=== PATIENT | female | born 1985 | race Two or more races ===

== ENCOUNTER 2016-06-11 18:02 | Emergency (ER) | payer MEDICAID ==
[~2016-06-11] VITALS: Ht 157.5 cm; Wt 64.4 kg
[~2016-06-11 18:02] MED LIST: PREN-96 PO; PRENMIS19
[2016-06-11 23:31] LABS: Urine RBC None Seen /hpf (0 - 4)
[2016-06-11 23:46] LABS: Urine Bilirubin Negative (Negative); Urine Blood Negative /uL (Negative); Urine Color Yellow (Yellow); Urine Glucose Normal (Normal); Urine Ketone Negative (Negative); Urine Mucus FEW (None Seen); Urine Nitrite Negative (Negative); Urine Squamous Epithelial Cell FEW /hpf (<5); Urine Urobilinogen Normal (Negative); Urine pH 6.5 (5.0-8.0)
[2016-06-12] MEDS ORDERED: ACETAMINOPHEN 325 MG TAB PO ONE ×2 (00:34→00:45)
[2016-06-12 03:39] VITALS: BP 123/73
== END 2016-06-12 04:14 | disposition home or self-care (01) ==
LOC: ER 18:03
DX: O26.891 Other specified pregnancy related conditions, first trimester (principal); G43.909 Migraine, unspecified, not intractable, without status migrainosus; Z3A.14 14 weeks gestation of pregnancy
CPT/HCPCS: 76801; 81001; 81025

== ENCOUNTER 2016-09-05 02:34 | Observation (INO) | payer MEDICAID ==
[2016-09-05] MEDS ORDERED: LACTATED RINGER'S 1,000 ML IV ONE (02:41)
[2016-09-05] MEDS ORDERED: ONDANSETRON HCL 4 MG/2 ML VIAL IV PRN (02:45)
[2016-09-05] MEDS ORDERED: TERBUTALINE SULFATE 1 MG/ML 1ML VIAL SC SCH (02:45)
== END 2016-09-05 03:56 | disposition home or self-care (01) | DRG 566 ==
LOC: LDRP 02:34
PROVIDERS: ADMIT Obstetrics & Gynecology; ATTEND Obstetrics & Gynecology
DX: O21.2 Late vomiting of pregnancy (principal); O26.892 Other specified pregnancy related conditions, second trimester; R10.9 Unspecified abdominal pain; Z3A.26 26 weeks gestation of pregnancy
CPT/HCPCS: 59025; 81002; 96374; G0378; J2405; 96366; 96375

== ENCOUNTER → 2016-09-05 | Emergency (ER) | payer MEDICAID | END | disposition left against medical advice (07) | LOC: ER 02:21 | DX: R10.9 Unspecified abdominal pain (principal); Z53.21 Procedure and treatment not carried out due to patient leaving prior to being seen by health care provider ==

== ENCOUNTER → 2016-09-18 | Outpatient (CLI) | payer MEDICAID ==
[2016-09-18 12:29] LABS: Basophils # (auto) 0 uL; Basophils % (auto) 0.3 % (0.0-2.0); Eosinophils # (auto) 0.3 uL; Eosinophils % (auto) 4.5 % (0.0-7.0); Hematocrit 35.6 % (36.0-46.0); Hemoglobin 11.9 g/dL (12.2-16.2); Lymphocytes # (auto) 1.3 uL; Lymphocytes % (auto) 17.5 % (10.0-50.0); Mean Corpuscular Hemoglobin 28.5 pg (28.0-32.0); Mean Corpuscular Hgb Conc. 33.3 g/dL (32.0-36.0); Mean Corpuscular Volume 85.7 fL (80.0-100.0); Monocytes # (auto) 0.5 uL; Monocytes % (auto) 6.6 % (0.0-12.0); Neutrophils # (auto) 5.1 uL; Neutrophils % (auto) 71.1 % (37.0-80.0); Platelet Count (auto) 261 10^3/uL (140-450); Red Cell Distribution Width 13.8 % (11.6-16.0); White Blood Cell 7.2 10^3/uL (4.4-10.8)
== END | disposition home or self-care (01) ==
LOC: LAB 11:51
PROVIDERS: ATTEND Obstetrics & Gynecology
DX: Z34.80 Encounter for supervision of other normal pregnancy, unspecified trimester (principal); O99.810 Abnormal glucose complicating pregnancy; Z11.3 Encounter for screening for infections with a predominantly sexual mode of transmission; Z31.430 Encounter of female for testing for genetic disease carrier status for procreative management
CPT/HCPCS: 36415; 80307; 84144; 84702; 85025; 86762; 86850; 86900; 86901; 87086; 87340

== ENCOUNTER 2016-11-02 13:30 | Observation (INO) | payer MEDICAID ==
[~2016-11-02] VITALS: Ht 157.5 cm; Wt 74.8 kg
[2016-11-02 14:19] LABS: Urine RBC None Seen /hpf (0 - 4)
[2016-11-02] MEDS ORDERED: TERBUTALINE SULFATE 1 MG/ML 1ML VIAL SC ONE ×2 (14:27→14:45)
[2016-11-02 14:37] LABS: Urine Bilirubin Negative (Negative); Urine Blood Negative /uL (Negative); Urine Color Yellow (Yellow); Urine Glucose Normal (Normal); Urine Hyaline Cast FEW /lpf (0 - 2); Urine Ketone Negative (Negative); Urine Nitrite Negative (Negative); Urine Squamous Epithelial Cell FEW /hpf (<5); Urine Urobilinogen Normal (Negative); Urine pH 6.5 (5.0-8.0)
== END 2016-11-02 15:45 | disposition home or self-care (01) | DRG 566 ==
LOC: LDRP 13:30
PROVIDERS: ADMIT Specialist; ATTEND Specialist
DX: O46.93 Antepartum hemorrhage, unspecified, third trimester (principal); Z3A.35 35 weeks gestation of pregnancy
CPT/HCPCS: 59025; 80307; 81001; 81002; 96372; G0378; J3105

== ENCOUNTER 2016-11-22 18:16 | Observation (INO) | payer MEDICAID ==
[2016-11-22] MEDS ORDERED: LACTATED RINGER'S 1,000 ML IV ONE (19:00)
[2016-11-22] MEDS ORDERED: TERBUTALINE SULFATE 1 MG/ML 1ML VIAL SC ONE ×2 (19:33→19:45)
== END 2016-11-22 21:16 | disposition home or self-care (01) | DRG 566 ==
LOC: LDRP 18:16
PROVIDERS: ADMIT Specialist; ATTEND Specialist
DX: O62.9 Abnormality of forces of labor, unspecified (principal); Z3A.38 38 weeks gestation of pregnancy
CPT/HCPCS: 59025; 81002; 96360; 96372; G0378; J3105; 96361; 96366

== ENCOUNTER 2016-11-25 19:19 | Observation (INO) | payer MEDICAID | END 2016-11-25 21:00 | disposition home or self-care (01) | DRG 566 | LOC: LDRP 19:19 | PROVIDERS: ADMIT Specialist; ATTEND Specialist | DX: O46.93 Antepartum hemorrhage, unspecified, third trimester (principal); Z3A.38 38 weeks gestation of pregnancy | CPT/HCPCS: 59025; 76815; 81002; G0378 ==

== ENCOUNTER 2016-11-27 14:10 | Observation (INO) | payer MEDICAID ==
[2016-11-27 15:49] LABS: Basophils # (auto) 0 uL; Basophils % (auto) 0.5 % (0.0-2.0); CONDITION Y; Eosinophils # (auto) 0.3 uL; Eosinophils % (auto) 3.4 % (0.0-7.0); Hematocrit 36.8 % (36.0-46.0); Hemoglobin 12.6 g/dL (12.2-16.2); Lymphocytes % (auto) 25.3 % (10.0-50.0); Mean Corpuscular Hemoglobin 28.6 pg (28.0-32.0); Mean Corpuscular Hgb Conc. 34.2 g/dL (32.0-36.0); Mean Corpuscular Volume 83.6 fL (80.0-100.0); Mean Platelet Volume 8.6 fL (7.4-10.4); Monocytes # (auto) 0.6 uL; Monocytes % (auto) 6.9 % (0.0-12.0); Neutrophils # (auto) 5.1 uL; Neutrophils % (auto) 63.9 % (37.0-80.0); Platelet Count (auto) 251 10^3/uL (140-450); Red Cell Distribution Width 15.1 % (11.6-16.0)
== END 2016-11-27 16:00 | disposition home or self-care (01) | DRG 955 ==
LOC: LDRP 14:10
PROVIDERS: ADMIT Obstetrics & Gynecology; ATTEND Obstetrics & Gynecology
DX: O26.899 Other specified pregnancy related conditions, unspecified trimester (principal); R42 Dizziness and giddiness; O26.859 Spotting complicating pregnancy, unspecified trimester; O62.9 Abnormality of forces of labor, unspecified; Z3A.00 Weeks of gestation of pregnancy not specified
CPT/HCPCS: 36415; 59025; 76818; 81002; 85025; G0378

== ENCOUNTER 2016-11-30 04:02 | Inpatient (IN) | payer MEDICAID ==
[~2016-11-30] VITALS: Ht 157.5 cm; Wt 74.8 kg
[2016-11-30] VITALS (11 sets, daily range): BP systolic 90–122; BP diastolic 52–83
[2016-11-30] MEDS: LACTATED RINGER'S 1,000 ML IV SCH ×2 (04:40→12:29)
[2016-11-30 04:56] LABS: Basophils # (auto) 0 uL; Basophils % (auto) 0.4 % (0.0-2.0); CONDITION Y; Eosinophils # (auto) 0.3 uL; Eosinophils % (auto) 3.6 % (0.0-7.0); Hematocrit 38.3 % (36.0-46.0); Hemoglobin 12.9 g/dL (12.2-16.2); Lymphocytes # (auto) 2.1 uL; Mean Corpuscular Hemoglobin 28.4 pg (28.0-32.0); Mean Corpuscular Hgb Conc. 33.7 g/dL (32.0-36.0); Mean Corpuscular Volume 84.3 fL (80.0-100.0); Mean Platelet Volume 8.9 fL (7.4-10.4); Monocytes # (auto) 0.5 uL; Monocytes % (auto) 6.6 % (0.0-12.0); Neutrophils # (auto) 5.2 uL; Neutrophils % (auto) 63.4 % (37.0-80.0); Platelet Count (auto) 241 10^3/uL (140-450); Red Cell Distribution Width 14.9 % (11.6-16.0); White Blood Cell 8.2 10^3/uL (4.4-10.8)
[2016-11-30 05:11] LABS: INR 0.9 (0.9-1.15); Prothrombin Time 9.8 sec (9.37-12.3)
[2016-11-30 05:25] LABS: Albumin 2.5 g/dL (3.4-5.0); BUN/Creatinine Ratio 22.2; Bilirubin, Total 0.1 mg/dL (0.2-1.0); Calcium 8.1 mg/dL (8.5-10.1); Potassium 3.7 mmol/L (3.5-5.1); Total Protein 6.8 g/dL (6.4-8.2)
[2016-11-30 06:21] LABS: Urine Bilirubin Negative (Negative); Urine Blood Negative /uL (Negative); Urine Color Yellow (Yellow); Urine Glucose Normal (Normal); Urine Ketone Negative (Negative); Urine Mucus FEW (None Seen); Urine Nitrite Negative (Negative); Urine RBC 1 /hpf (0 - 4); Urine Squamous Epithelial Cell MOD /hpf (<5); Urine Urobilinogen Normal (Negative); Urine pH 6.5 (5.0-8.0)
[2016-11-30] MEDS ORDERED: MORPHINE SULF(PF) 0.5MG/ML 10ML VIAL ONE (08:26)
[2016-11-30] MEDS ORDERED: ONDANSETRON HCL 4 MG/2 ML VIAL ONE (09:01)
[2016-11-30] MEDS ORDERED: METOCLOPRAMIDE HCL 5MG/ml INJ 2ml VIAL ONE (09:01)
[2016-11-30] MEDS ORDERED: ePHEDrine SULFATE 50 MG/ML AMP ONE (09:02)
[2016-11-30] MEDS ORDERED: OXYTOCIN 10 UNIT/ML 10ML VIAL ONE (09:02)
[2016-11-30] MEDS ORDERED: ceFAZolin 1GM VL ONE (09:02)
[2016-11-30] MEDS ORDERED: MIDAZOLAM HCL 1MG/1ML-2 ML VIAL ONE (09:03)
[2016-11-30] MEDS ORDERED: ONDANSETRON HCL 4 MG/2 ML VIAL IV PRN (09:30)
[2016-11-30] MEDS ORDERED: KETOROLAC TROMETH 30 MG/ML 1ML VIAL IV PRN (09:45)
[2016-11-30] MEDS ORDERED: HYDROmorphone HCL 2 MG/ML VL IV PRN ×2 (09:45→11:30)
[2016-11-30] MEDS ORDERED: OXYTOCIN 10UNIT/ML 1ML VIAL ONE (10:10)
[2016-11-30] MEDS ORDERED: ONDANSETRON HCL 4 MG/2 ML VIAL IV ONE (11:30)
[2016-11-30] MEDS: diphenhdrAMINE HCL 50 MG/1 ML VL IV PRN (13:20)
[2016-11-30] MEDS: LACT. RINGERS/OXYTOCIN 20UNITS 1,000 ML IV SCH ×2 (13:20→16:34)
[2016-11-30] MEDS: ceFAZolin 1GM/50ML D5W 50 ML IV SCH ×2 (14:11→22:23)
[2016-11-30 17:27] LABS: Basophils # (auto) 0 uL; Basophils % (auto) 0.3 % (0.0-2.0); CONDITION Y; Eosinophils # (auto) 0.1 uL; Eosinophils % (auto) 0.5 % (0.0-7.0); Hematocrit 34.8 % (36.0-46.0); Hemoglobin 11.8 g/dL (12.2-16.2); Lymphocytes # (auto) 1.6 uL; Lymphocytes % (auto) 14.6 % (10.0-50.0); Mean Corpuscular Hemoglobin 28.4 pg (28.0-32.0); Mean Corpuscular Hgb Conc. 33.8 g/dL (32.0-36.0); Mean Corpuscular Volume 83.9 fL (80.0-100.0); Mean Platelet Volume 8.6 fL (7.4-10.4); Monocytes # (auto) 0.4 uL; Neutrophils # (auto) 8.6 uL; Neutrophils % (auto) 80.6 % (37.0-80.0); Platelet Count (auto) 226 10^3/uL (140-450); White Blood Cell 10.7 10^3/uL (4.4-10.8)
[2016-12-01] VITALS (11 sets, daily range): BP systolic 90–102; BP diastolic 53–82
[2016-12-01] MEDS: diphenhdrAMINE HCL 50 MG/1 ML VL IV PRN (01:44)
[2016-12-01] MEDS: ceFAZolin 1GM/50ML D5W 50 ML IV SCH (06:04)
[2016-12-01 06:44] LABS: Basophils # (auto) 0 uL; Basophils % (auto) 0.5 % (0.0-2.0); CONDITION Y; Eosinophils # (auto) 0.1 uL; Eosinophils % (auto) 1.2 % (0.0-7.0); Hemoglobin 11.1 g/dL (12.2-16.2); Lymphocytes # (auto) 1.6 uL; Lymphocytes % (auto) 16.6 % (10.0-50.0); Mean Corpuscular Hemoglobin 28.3 pg (28.0-32.0); Mean Corpuscular Hgb Conc. 33.6 g/dL (32.0-36.0); Mean Corpuscular Volume 84.2 fL (80.0-100.0); Mean Platelet Volume 8.5 fL (7.4-10.4); Monocytes # (auto) 0.5 uL; Monocytes % (auto) 5.5 % (0.0-12.0); Neutrophils # (auto) 7.3 uL; Neutrophils % (auto) 76.2 % (37.0-80.0); Platelet Count (auto) 213 10^3/uL (140-450); Red Cell Distribution Width 15.1 % (11.6-16.0); White Blood Cell 9.6 10^3/uL (4.4-10.8)
[2016-12-01] MEDS ORDERED: BISACODYL 10 MG RECT SUPP PR PRN (07:15)
[2016-12-01] MEDS: HYDROcodone-ACET 10/325MG TAB PO PRN ×2 (08:11→17:40)
[2016-12-01] MEDS ORDERED: TETANUS-DIPTH-ACEL PERTUSSIS 0.5ML SYRG IM ONE (10:00)
[2016-12-01] MEDS: DOCUSATE SOD 100 MG CAP PO SCH ×2 (10:22→21:49)
[2016-12-01] MEDS: DOCUSATE CALCIUM 240 MG CAP PO SCH (10:22)
[2016-12-01] MEDS: SIMETHICONE 80 MG CHEWABLE TABLET PO SCH ×3 (12:09→21:49)
[2016-12-01] MEDS: IBUPROFEN 800 MG TAB PO PRN ×2 (12:13→21:50)
[2016-12-02 04:01] VITALS: BP 99/47
[2016-12-02] MEDS: SIMETHICONE 80 MG CHEWABLE TABLET PO SCH ×4 (06:00→21:32)
[2016-12-02] MEDS: DOCUSATE SOD 100 MG CAP PO SCH ×2 (07:32→21:32)
[2016-12-02] MEDS: DOCUSATE CALCIUM 240 MG CAP PO SCH (07:33)
[2016-12-02] MEDS: IBUPROFEN 800 MG TAB PO PRN ×2 (07:34→21:32)
[2016-12-02 08:00] VITALS: BP 106/62
[2016-12-02] MEDS ORDERED: MEASLES, MUMPS & RUBELLA VAC(MMRII) 0.5ML SC ONE (10:00)
[2016-12-02] MEDS: HYDROcodone-ACET 5/325MG TAB PO PRN ×2 (11:16→19:20)
[2016-12-02 12:00] VITALS: BP 124/63
[2016-12-02 16:00] VITALS: BP 111/70
[2016-12-02 23:30] VITALS: BP 105/71
[2016-12-03] VITALS (7 sets, daily range): BP systolic 105–130; BP diastolic 69–89
[2016-12-03] MEDS: HYDROcodone-ACET 5/325MG TAB PO PRN ×3 (00:37→19:25)
[2016-12-03] MEDS: SIMETHICONE 80 MG CHEWABLE TABLET PO SCH ×3 (05:38→19:25)
[2016-12-03] MEDS: IBUPROFEN 800 MG TAB PO PRN ×2 (05:38→15:36)
[2016-12-03] MEDS: DOCUSATE SOD 100 MG CAP PO SCH (10:00)
[2016-12-03] MEDS: DOCUSATE CALCIUM 240 MG CAP PO SCH (10:00)
[2016-12-03] MEDS: MEASLES, MUMPS & RUBELLA VAC(MMRII) 0.5ML SC ONE ×2 (19:49→20:44)
== END 2016-12-03 21:40 | disposition home or self-care (01) | DRG 540 ==
LOC: LDRP 04:02
PROVIDERS: ADMIT Obstetrics & Gynecology; ATTEND Obstetrics & Gynecology
PROC: 10D00Z1 Extraction of Products of Conception, Low, Open Approach (ICD-10-PCS; 2016-11-30)
PROC: 0UB70ZZ Excision of Bilateral Fallopian Tubes, Open Approach (ICD-10-PCS; principal; 2016-11-30 08:22)
DX: O34.211 Maternal care for low transverse scar from previous cesarean delivery (principal); Z91.040 Latex allergy status; Z30.2 Encounter for sterilization; Z37.0 Single live birth; Z3A.39 39 weeks gestation of pregnancy
CPT/HCPCS: 36415; 51702; 59025; 80053; 80307; 81001; 81002; 85025; 85610; 85730; 86850; 86900; 86901; 94762; 96361; 96366; 96372; J0690; J2250; J2405; J2590

== ENCOUNTER 2018-04-11 02:00 | Inpatient (IN) | payer MEDICAID ==
[~2018-04-11] VITALS: Ht 157.5 cm; Wt 73.9 kg
[2018-04-11 03:04] LABS: Basophils # (auto) 0.1 uL; Basophils % (auto) 0.6 % (0.0-2.0); Eosinophils # (auto) 0.3 uL; Eosinophils % (auto) 2.7 % (0.0-7.0); Hematocrit 41.1 % (36.0-46.0); Hemoglobin 13.5 g/dL (12.2-16.2); Lymphocytes # (auto) 3.8 uL; Lymphocytes % (auto) 30.4 % (10.0-50.0); Mean Corpuscular Hemoglobin 27.7 pg (28.0-32.0); Mean Corpuscular Hgb Conc. 32.8 g/dL (32.0-36.0); Mean Corpuscular Volume 84.4 fL (80.0-100.0); Monocytes # (auto) 0.9 uL; Neutrophils # (auto) 7.4 uL; Neutrophils % (auto) 59.3 % (37.0-80.0); Platelet Count (auto) 307 10^3/uL (140-450); Red Blood Cells 4.87 10^6/uL (4.0-5.20); Red Cell Distribution Width 13.3 % (11.8-14.3); White Blood Cell 12.4 10^3/uL (4.4-10.8)
[2018-04-11 03:22] LABS: Albumin 3.6 g/dL (3.4-5.0); BUN/Creatinine Ratio 18.5; Calcium 8.6 mg/dL (8.5-10.1); Potassium 3.8 mmol/L (3.5-5.1)
[2018-04-11 03:25] LABS: Bilirubin, Total 0.3 mg/dL (0.2-1.0)
[2018-04-11] MEDS ORDERED: SODIUM CHLORIDE 0.9% 1,000 ML IVB ONE (03:41)
[2018-04-11] MEDS ORDERED: PIPERACILLIN-TAZOB 3.375GM 100 ML IV ONE (03:45)
[2018-04-11] MEDS ORDERED: HYDROmorphone HCL 2 MG/ML VL IV ONE (03:45)
[2018-04-11] MEDS ORDERED: ONDANSETRON HCL 4 MG/2 ML VIAL IV ONE ×2 (03:45→12:15)
[2018-04-11 04:04] LABS: INR 0.96 (0.9-1.15); Partial Thromboplastin Time 28.2 sec (23.78-33.04); Prothrombin Time 10.3 sec (9.27-12.13)
[2018-04-11] MEDS ORDERED: ONDANSETRON HCL 4 MG/2 ML VIAL IV PRN (07:00)
[2018-04-11] MEDS ORDERED: TEMAZEPAM 15 MG CAP PO PRN (07:00)
[2018-04-11] MEDS ORDERED: ACETAMINOPHEN 325 MG TAB PO PRN (07:00)
[2018-04-11 07:04] LABS: Urine WBC None Seen /hpf (0 - 5)
[2018-04-11 07:15] LABS: Urine Bacteria FEW /hpf (None Seen); Urine Blood Negative /uL (Negative); Urine Mucus FEW (None Seen); Urine Specific Gravity 1.022 (1.001-1.035)
[2018-04-11] MEDS: metroNIDAZOLE 500MG/100ML 100 ML IV SCH ×3 (07:28→21:25)
[2018-04-11 09:00] VITALS: BP 113/76
[2018-04-11] MEDS: cefTRIAXone 1GM/50ML D5W 50 ML IV SCH (09:00)
[2018-04-11] MEDS: FAMOTIDINE 20 MG TAB PO SCH ×2 (10:00→20:25)
[2018-04-11] MEDS ORDERED: MIDAZOLAM HCL 1MG/1ML-2 ML VIAL ONE (10:57)
[2018-04-11] MEDS ORDERED: LIDOCAINE 1% INJ PF 5ML AMP ONE (10:58)
[2018-04-11] MEDS ORDERED: ROCURONIUM 10MG/ML 10ML VIAL IV ONE (10:58)
[2018-04-11] MEDS ORDERED: PROPOFOL 10 MG/ML 20 ML IV ONE (11:00)
[2018-04-11] MEDS ORDERED: SUCCINYLCHOLINE CHLORIDE 20 MG/ML 10ML VIAL IV ONE (11:41)
[2018-04-11] MEDS ORDERED: fentaNYL CITRATE 100 MCG/2 ML VL ONE (12:07)
[2018-04-11] MEDS ORDERED: NALOXONE HCL 0.4 MG/ML VIAL IV PRN (12:15)
[2018-04-11] MEDS ORDERED: MORPHINE SULFATE 4 MG/ML SYR/VIAL IV PRN (12:15)
[2018-04-11] MEDS ORDERED: KETOROLAC TROMETH 30 MG/ML 1ML VIAL ONE (12:21)
[2018-04-11] MEDS ORDERED: GLYCOPYRROLATE 0.2 MG/ML 1ML VIAL ONE (12:23)
[2018-04-11] MEDS ORDERED: NEOSTIGMINE 1 MG/ML INJ (10mg/10ML VIAL) ONE (12:23)
[2018-04-11 13:00] VITALS: BP 111/78
[2018-04-11] MEDS: HYDROcodone-ACET 5/325MG TAB PO PRN (20:26)
[2018-04-11 22:00] VITALS: BP 115/57
[2018-04-12 05:00] VITALS: BP 132/75
[2018-04-12] MEDS: metroNIDAZOLE 500MG/100ML 100 ML IV SCH (05:45)
[2018-04-12 06:58] LABS: Basophils # (auto) 0 uL; Basophils % (auto) 0.3 % (0.0-2.0); Eosinophils # (auto) 0.2 uL; Eosinophils % (auto) 2.2 % (0.0-7.0); Hematocrit 36.8 % (36.0-46.0); Hemoglobin 12.6 g/dL (12.2-16.2); Lymphocytes # (auto) 2.8 uL; Lymphocytes % (auto) 27.9 % (10.0-50.0); Mean Corpuscular Hemoglobin 29.2 pg (28.0-32.0); Mean Corpuscular Hgb Conc. 34.3 g/dL (32.0-36.0); Mean Corpuscular Volume 85.3 fL (80.0-100.0); Monocytes # (auto) 0.6 uL; Neutrophils # (auto) 6.4 uL; Neutrophils % (auto) 63.6 % (37.0-80.0); Platelet Count (auto) 268 10^3/uL (140-450); Red Blood Cells 4.31 10^6/uL (4.0-5.20); Red Cell Distribution Width 13.8 % (11.8-14.3); White Blood Cell 10.1 10^3/uL (4.4-10.8)
[2018-04-12 07:09] LABS: Albumin 3.2 g/dL (3.4-5.0); Calcium 7.9 mg/dL (8.5-10.1)
[2018-04-12 07:13] LABS: BUN/Creatinine Ratio 16.7; Bilirubin, Total 0.4 mg/dL (0.2-1.0); Total Protein 6.9 g/dL (6.4-8.2)
[2018-04-12 07:27] LABS: Cholesterol 146 mg/dL (< 200); HDL Cholesterol 37 mg/dL (40-59); LDL Cholesterol 96 mg/dL (< 100); Triglycerides 106 mg/dL (< 150)
[2018-04-12 09:00] VITALS: BP 125/83
[2018-04-12] MEDS: FAMOTIDINE 20 MG TAB PO SCH (09:30)
[2018-04-12] MEDS: cefTRIAXone 1GM/50ML D5W 50 ML IV SCH (09:30)
[2018-04-12] MEDS: HYDROcodone-ACET 5/325MG TAB PO PRN (09:30)
[2018-04-12 11:06] VITALS: BP 125/83
== END 2018-04-12 12:10 | disposition home or self-care (01) | DRG 263 ==
LOC: ER 02:00 → OVERFLOW 02:01 → WEST WING 08:29
PROVIDERS: ADMIT Nurse Practitioner; ATTEND Internal Medicine
PROC: 0FT44ZZ Resection of Gallbladder, Percutaneous Endoscopic Approach (ICD-10-PCS; principal; 2018-04-11 11:55)
DX: K80.00 Calculus of gallbladder with acute cholecystitis without obstruction (principal); D72.829 Elevated white blood cell count, unspecified; F41.9 Anxiety disorder, unspecified; E66.9 Obesity, unspecified; Z82.49 Family history of ischemic heart disease and other diseases of the circulatory system; Z83.3 Family history of diabetes mellitus; Z98.51 Tubal ligation status; Z91.040 Latex allergy status; Z68.29 Body mass index [BMI] 29.0-29.9, adult
CPT/HCPCS: 36415; 71045; 74176; 76705; 78226; 80053; 80061; 81001; 81025; 82150; 83036; 83690; 83735; 84702; 85025; 85610; 85730; 86850; 86900; 86901; 96361; 96374; 96375; A6257; G0378; J0330; J0696; J1885; J2250; J2405; J2543; J2704; J3490

== ENCOUNTER 2018-04-26 02:11 | Emergency (ER) | payer MEDICAID ==
[~2018-04-26] VITALS: Ht 157.5 cm; Wt 65.8 kg
[2018-04-26 05:36] LABS: Urine Bacteria FEW /hpf (None Seen); Urine Blood TRACE /uL (Negative); Urine Mucus FEW (None Seen); Urine WBC 4 /hpf (0 - 5)
[2018-04-26 05:40] LABS: Urine Pregnacy Test Negative (Negative)
[2018-04-26 05:51] LABS: Alcohol, Urine < 3.0 mg/dL (0-5); Amphetamine Screen, Urine POSITIVE (NEGATIVE); Barbiturate Scree,Urine NEGATIVE (NEGATIVE); Benzodiazephine Screen, Urine NEGATIVE (NEGATIVE); Cannabinoid Screen, Urine NEGATIVE (NEGATIVE); Cocaine Screen, Urine NEGATIVE (NEGATIVE); Opiate Scree,Urine NEGATIVE (NEGATIVE); Phencyclidine Screen, Urine NEGATIVE (NEGATIVE)
[2018-04-26 06:25] LABS: Basophils # (auto) 0.1 uL; Basophils % (auto) 0.6 % (0.0-2.0); Eosinophils # (auto) 0.5 uL; Eosinophils % (auto) 5.1 % (0.0-7.0); Hemoglobin 13.2 g/dL (12.2-16.2); Lymphocytes # (auto) 3.8 uL; Lymphocytes % (auto) 40.8 % (10.0-50.0); Mean Corpuscular Hemoglobin 28.5 pg (28.0-32.0); Mean Corpuscular Hgb Conc. 33.8 g/dL (32.0-36.0); Mean Corpuscular Volume 84.5 fL (80.0-100.0); Monocytes # (auto) 0.6 uL; Monocytes % (auto) 6.5 % (0.0-12.0); Neutrophils # (auto) 4.4 uL; Nucleated Red Blood Cells % 0.1 %; Platelet Count (auto) 287 10^3/uL (140-450); Red Blood Cells 4.61 10^6/uL (4.0-5.20); Red Cell Distribution Width 13.3 % (11.8-14.3); White Blood Cell 9.4 10^3/uL (4.4-10.8)
[2018-04-26 06:42] LABS: Chloride 107 mmol/L (98-107); Potassium 3.1 mmol/L (3.5-5.1); Salicylate < 1.7 mg/dL (2.8-20.0); Sodium 139 mmol/L (136-145)
[2018-04-26 06:44] LABS: Acetaminophen < 2.0 ug/mL (10-30); Alanine Aminotransferase 31 U/L (13-56); Albumin 3.6 g/dL (3.4-5.0); Anion Gap 8 (5-15); Aspartate Aminotransferase 19 U/L (15-37); BUN/Creatinine Ratio 16.2; Blood Alcohol < 3.0 mg/dL (0-5); Blood Urea Nitrogen 11 mg/dL (7-18); Calcium 8.3 mg/dL (8.5-10.1); Carbon Dioxide 24 mmol/L (21-32); GFR African American 131 mL/min; GFR Non-African American 108 mL/min; Glucose 90 mg/dL (74-106)
[2018-04-26 06:47] LABS: Alkaline Phosphatase 100 U/L (45-117); Bilirubin, Total 0.5 mg/dL (0.2-1.0); Total Protein 7.6 g/dL (6.4-8.2)
[2018-04-26] MEDS ORDERED: POTASSIUM EFFERVESENT TAB 25 MEQ PO ONE (13:45)
[2018-04-26 20:59] VITALS: BP 120/69
== END 2018-04-26 21:26 | disposition short-term general hospital (02) ==
LOC: ER 02:17
DX: S51.812A Laceration without foreign body of left forearm, initial encounter (principal); S51.811A Laceration without foreign body of right forearm, initial encounter; S61.512A Laceration without foreign body of left wrist, initial encounter; S61.511A Laceration without foreign body of right wrist, initial encounter; F32.9 Major depressive disorder, single episode, unspecified; F15.10 Other stimulant abuse, uncomplicated; E87.6 Hypokalemia; X78.1XXA Intentional self-harm by knife, initial encounter; Y93.89 Activity, other specified; Y92.090 Kitchen in other non-institutional residence as the place of occurrence of the external cause; Y99.8 Other external cause status
CPT/HCPCS: 36415; 80053; 80307; 80320; 80329; 81001; 81025; 85025

== ENCOUNTER → 2018-08-07 | Emergency (ER) | payer MEDICAID | END | disposition left against medical advice (07) | LOC: ER 22:47 | DX: R52 Pain, unspecified (principal); Z53.21 Procedure and treatment not carried out due to patient leaving prior to being seen by health care provider ==

== ENCOUNTER 2019-01-03 23:36 | Emergency (ER) | payer MEDICAID ==
[~2019-01-03] VITALS: Ht 157.5 cm; Wt 68.9 kg
[2019-01-04 00:02] VITALS: BP 129/82
== END 2019-01-04 00:28 | disposition left against medical advice (07) ==
LOC: ER 23:36
DX: M25.561 Pain in right knee (principal); M25.571 Pain in right ankle and joints of right foot; Z76.0 Encounter for issue of repeat prescription; Z53.21 Procedure and treatment not carried out due to patient leaving prior to being seen by health care provider

== ENCOUNTER 2019-01-30 21:49 | Emergency (ER) | payer MEDICAID ==
[~2019-01-30] VITALS: Ht 157.5 cm; Wt 70.0 kg
[2019-01-31 03:03] VITALS: BP 103/69
== END 2019-01-31 04:20 | disposition home or self-care (01) ==
LOC: ER 21:49
DX: M79.645 Pain in left finger(s) (principal); F17.210 Nicotine dependence, cigarettes, uncomplicated; Z90.49 Acquired absence of other specified parts of digestive tract; Z91.040 Latex allergy status; Z79.899 Other long term (current) drug therapy; X50.1XXA Overexertion from prolonged static or awkward postures, initial encounter; Y93.72 Activity, wrestling; Y92.89 Other specified places as the place of occurrence of the external cause; Y99.8 Other external cause status
CPT/HCPCS: 29130; 73130

== ENCOUNTER 2019-03-13 19:30 | Emergency (ER) | payer MEDICAID ==
[~2019-03-13] VITALS: Ht 157.5 cm; Wt 66.2 kg
[2019-03-13 19:58] VITALS: BP 127/87
== END 2019-03-14 05:35 | disposition left against medical advice (07) ==
LOC: ER 19:35
DX: R22.0 Localized swelling, mass and lump, head (principal); Z53.21 Procedure and treatment not carried out due to patient leaving prior to being seen by health care provider; Y08.89XA Assault by other specified means, initial encounter; Y93.89 Activity, other specified; Y92.89 Other specified places as the place of occurrence of the external cause; Y99.8 Other external cause status
CPT/HCPCS: 70450

== ENCOUNTER 2020-10-10 03:17 | Emergency (ER) | payer MEDICAID ==
[~2020-10-10] VITALS: Ht 157.5 cm; Wt 67.6 kg
[2020-10-10 03:19] VITALS: BP 133/90
== END 2020-10-10 06:21 | disposition left against medical advice (07) ==
LOC: ER 03:23
DX: G43.909 Migraine, unspecified, not intractable, without status migrainosus (principal); F17.210 Nicotine dependence, cigarettes, uncomplicated; Z91.040 Latex allergy status; Z79.899 Other long term (current) drug therapy; Z90.49 Acquired absence of other specified parts of digestive tract; Z98.890 Other specified postprocedural states

== ENCOUNTER 2021-02-07 09:09 | Emergency (ER) | payer MEDICAID ==
[~2021-02-07] VITALS: Ht 157.5 cm; Wt 65.3 kg
[2021-02-07 11:03] LABS: Albumin 3.3 g/dL (3.4-5.0); Anion Gap 6 (5-15); Basophils # (auto) 0.1 10 ^3/uL (0-0.2); Basophils % (auto) 0.6 % (0.0-2.0); Blood Urea Nitrogen 13 mg/dL (7-18); Calcium 8.4 mg/dL (8.5-10.1); Carbon Dioxide 26 mmol/L (21-32); Chloride 106 mmol/L (98-107); Eosinophils # (auto) 0.3 10 ^3/uL (0-0.8); Eosinophils % (auto) 2.6 % (0.0-7.0); Glucose 97 mg/dL (74-106); Hematocrit 41.2 % (36.0-46.0); Hemoglobin 13.9 g/dL (12.2-16.2); Lymphocytes # (auto) 3.1 10 ^3/uL (0.4-5.4); Lymphocytes % (auto) 30.6 % (10.0-50.0); Mean Corpuscular Hgb Conc. 33.8 g/dL (32.0-36.0); Mean Corpuscular Volume 85.8 fL (80.0-100.0); Monocytes # (auto) 0.6 10 ^3/uL (0-1.3); Monocytes % (auto) 5.6 % (0.0-12.0); Neutrophils # (auto) 6.2 10 ^3/uL (1.6-8.6); Neutrophils % (auto) 60.6 % (37.0-80.0); Nucleated Red Blood Cells % 0.2 %; Potassium 3.5 mmol/L (3.5-5.1); Red Cell Distribution Width 13.8 % (11.8-14.3); Sodium 138 mmol/L (136-145); White Blood Cell 10.3 10^3/uL (4.4-10.8)
[2021-02-07 11:10] LABS: Alanine Aminotransferase 22 U/L (13-56); Alkaline Phosphatase 103 U/L (45-117); Aspartate Aminotransferase 8 U/L (15-37); BUN/Creatinine Ratio 17.8; Bilirubin, Total 0.2 mg/dL (0.2-1.0); GFR African American 118 mL/min; GFR Non-African American 98 mL/min; Total Protein 7.4 g/dL (6.4-8.2)
[2021-02-07 12:06] VITALS: BP 108/81
[2021-02-07] MEDS ORDERED: cefTRIAXone SOD 1,000 MG VL IM ONE (12:15)
[2021-02-07] MEDS ORDERED: methylPREDNISolone SOD SUCC 125 MG/2 ML VL IM ONE (12:15)
== END 2021-02-07 12:31 | disposition home or self-care (01) ==
LOC: ER 09:09
DX: J06.9 Acute upper respiratory infection, unspecified (principal); R09.1 Pleurisy; J45.909 Unspecified asthma, uncomplicated; F17.210 Nicotine dependence, cigarettes, uncomplicated; Z90.49 Acquired absence of other specified parts of digestive tract; Z20.822 Contact with and (suspected) exposure to COVID-19
CPT/HCPCS: 36415; 71045; 80053; 84484; 85025; 85379; 87426; 93005; 96372; 99285; J0696; J2930

== ENCOUNTER 2021-04-12 11:15 | Emergency (ER) | payer MEDICAID ==
[~2021-04-12] VITALS: Ht 157.5 cm; Wt 61.2 kg
[2021-04-12 11:17] VITALS: BP 133/91
== END 2021-04-12 15:20 | disposition left against medical advice (07) ==
LOC: ER 11:15
DX: R05.9 Cough, unspecified (principal); R09.81 Nasal congestion; R51.9 Headache, unspecified; Z20.822 Contact with and (suspected) exposure to COVID-19; Z53.21 Procedure and treatment not carried out due to patient leaving prior to being seen by health care provider
CPT/HCPCS: 36415; 71045; 87426

== ENCOUNTER 2023-11-10 09:44 | Emergency (ER) | payer MEDICAID ==
[~2023-11-10] VITALS: Ht 157.5 cm; Wt 71.1 kg
[2023-11-10 09:44] VITALS: BP 121/70; PULSE 98; RESP 18; O2SAT 98
[2023-11-10] MEDS ORDERED: MECL1TAB42 PO (10:34)
== END 2023-11-10 15:39 | disposition left against medical advice (07) ==
LOC: ER 09:44
DX: N92.1 Excessive and frequent menstruation with irregular cycle (principal); R10.2 Pelvic and perineal pain; J45.909 Unspecified asthma, uncomplicated; Z98.890 Other specified postprocedural states; Z87.891 Personal history of nicotine dependence; Z91.040 Latex allergy status; Z79.899 Other long term (current) drug therapy
CPT/HCPCS: 36415; 84702

== ENCOUNTER 2023-12-16 05:42 | Emergency (ER) | payer MEDICAID ==
[~2023-12-16] VITALS: Ht 157.5 cm; Wt 67.4 kg
[~2023-12-16 05:42] MED LIST changes: +MECL1TAB42 PO
[2023-12-16] MEDS: KETOROLAC TROMETH 30 MG/ML 1ML VIAL IM ONE (07:34)
[2023-12-16 07:47] VITALS: BP 108/85; PULSE 112; RESP 16; TEMP 97.8; O2SAT 100
[2023-12-16 08:23] LABS: Rapid Influenza A Negative (Negative); Rapid Influenza B Negative (Negative)
[2023-12-16 08:25] LABS: COVID19 ANTIGEN SOFIA FIA POSITIVE (NEGATIVE)
[2023-12-16] MEDS ORDERED: PROM1SOL4 PO (08:36)
[2023-12-16] MEDS ORDERED: MONT10TA23 PO (08:36)
[2023-12-16] MEDS ORDERED: IBUP-1455 PO (08:36)
== END 2023-12-16 08:38 | disposition home or self-care (01) ==
LOC: ER 05:42
DX: U07.1 COVID-19 (principal); J45.909 Unspecified asthma, uncomplicated; F17.210 Nicotine dependence, cigarettes, uncomplicated; Z98.890 Other specified postprocedural states; Z91.040 Latex allergy status; Z79.899 Other long term (current) drug therapy
CPT/HCPCS: 36415; 87426; 87804; 96372; 99283; J1885

== ENCOUNTER 2024-04-17 09:17 | Emergency (ER) | payer MEDICAID ==
[~2024-04-17] VITALS: Ht 157.5 cm; Wt 71.0 kg
[~2024-04-17 09:17] MED LIST changes: +IBUP-1455 PO; +MONT10TA23 PO; +PROM1SOL4 PO
[2024-04-17 11:35] LABS: Basophils # (auto) 0 10 ^3/uL (0-0.2); Basophils % (auto) 0.5 % (0.0-2.0); Eosinophils # (auto) 0.1 10 ^3/uL (0-0.8); Eosinophils % (auto) 1.3 % (0.0-7.0); Hematocrit 39.4 % (36.0-46.0); Lymphocytes # (auto) 2.5 10 ^3/uL (0.4-5.4); Mean Corpuscular Hemoglobin 28.2 pg (28.0-32.0); Mean Corpuscular Volume 85.5 fL (80.0-100.0); Monocytes # (auto) 0.4 10 ^3/uL (0-1.3); Monocytes % (auto) 5.3 % (0.0-12.0); Neutrophils # (auto) 4.4 10 ^3/uL (1.6-8.6); Neutrophils % (auto) 58.9 % (37.0-80.0); Nucleated Red Blood Cells % 0.1 %; Platelet Count (auto) 279 10^3/uL (140-450); Red Blood Cells 4.61 10^6/uL (4.0-5.20); Red Cell Distribution Width 13.5 % (11.8-14.3); White Blood Cell 7.5 10^3/uL (4.4-10.8)
[2024-04-17 11:41] LABS: Alanine Aminotransferase 20 U/L (7-40); Albumin 4.5 g/dL (3.2-4.8); Alkaline Phosphatase 105 U/L (46-116); Anion Gap 6 (5-15); Aspartate Aminotransferase 9 U/L (13-40); BUN/Creatinine Ratio 14.7 (10.0-20.0); Blood Urea Nitrogen 11 mg/dL (9-23); Calcium 9.7 mg/dL (8.7-10.4); Carbon Dioxide 29 mmol/L (20-31); Chloride 107 mmol/L (98-107); Glucose 101 mg/dL (74-106); Lipase 52 U/L (12-53); Potassium 4.5 mmol/L (3.5-5.1); Sodium 142 mmol/L (136-145)
[2024-04-17 11:42] LABS: Total Protein 7.2 g/dL (5.7-8.2)
[2024-04-17 11:47] LABS: Urine Bacteria None Seen /hpf (None Seen); Urine Blood Negative /uL (Negative); Urine Clarity Clear (Clear); Urine Color Light-Yellow (Yellow); Urine Mucus FEW (None Seen); Urine Protein, UAD Negative (Negative); Urine Specific Gravity 1.019 (1.001-1.035); Urine Urobilinogen Normal (Negative); Urine WBC 1 /hpf (0 - 5); Urine pH 5.5 (5.0-9.0)
[2024-04-17 11:51] LABS: Amphetamine Screen, Urine Pos (NEGATIVE)
[2024-04-17 11:52] LABS: Bilirubin, Total 0.2 mg/dL (0.2-1.0)
[2024-04-17 11:53] LABS: Barbiturate Scree,Urine Neg (NEGATIVE); Benzodiazephine Screen, Urine Neg (NEGATIVE); Cannabinoid Screen, Urine Neg (NEGATIVE); Cocaine Screen, Urine Neg (NEGATIVE); Opiate Scree,Urine Neg (NEGATIVE); Phencyclidine Screen, Urine Neg (NEGATIVE)
[2024-04-17 11:57] LABS: Blood Alcohol < 3.0 mg/dL (<10)
--- NOTE | 2024-04-17 12:36 | DVH ---
CT ABDOMEN AND PELVIS WITHOUT CONTRAST CLINICAL HISTORY: ABD PAIN N/V TECHNIQUE: Multiple contiguous axial images of the abdomen and pelvis without intravenous contrast. The images were reformatted degenerate coronal and sagittal reconstructions. All CT scans at this medical facility are performed using dose modulation techniques as appropriate t o a performed exam including the following:Automated exposure control was utilized; adjustment of the MA and/or KV according to patient size; and use of iterative reconstruction technique. Radiation Dose Information: CT Dose: CTDI volume is 16.63 mGy. Dose-length product is 829.19 mGy*cm Comparison: None FINDINGS: Evaluation of the abdomen and pelvis is limited without intravenous contrast. Gallbladder is surgically absent. The liver, pancreas, kidneys, adrenal glands, and spleen appear w ithin normal limits. There is no gross evidence of abdominal lymphadenopathy. There is no free fluid or free air. The stomach grossly appears unremarkable. The small and large bowel loops demonstrate normal caliber . The a normal-appearing appendix is seen in the right lower quadrant abdomen with no associated inf lammatory changes. The abdominal aorta and IVC appear within normal limits. The bladder appears unremarkable for the degree of distention. Uterus appears within normal limits. There are surgical clips in the right and left pelvis.. There is no gross evidence of a pelvic mass. There is no free fluid collection. Lung bases are clear. There is no acute osseous abnormality. IMPRESSION: 1. There is no acute process in the abdomen and pelvis. HS:Y
[2024-04-17 14:07] VITALS: O2SAT 100
[2024-04-17] MEDS: ONDANSETRON ODT 4 MG TAB PO ONE (14:07)
--- NOTE | 2024-04-17 14:12 | ED.PDOC ---
GI ASSESSMENT HPI Comments HPI: Poor Historian. 38 y.o female presents to the ED for a chief complaint for epigastric pain associated with nausea and vomiting. Patient reports intermittent pain that started 6 months ago but progressively worsened. Patient complains of pain on palpation, improves when she sleeps. Patient denies any diarrhea, bloody stool, hematemesis, urinary symptoms,fever, or chills. Patient denies being seen for this pain in the past. Patient reports allergies to Latex Vitals BP: 123/73 HR: 99 Temp: 98.7F SpO2: 99% RA RR: 19 Past medical history: Varicose veins, schizophrenia, gastric ulcers, migraines Past surgical history: Cholecystectomy and x3 Lug[place], REVIEW OF SYSTEMS: CONSTITUTIONAL: Denies acute: fever, diaphoresis, chills, generalized weakness. HEAD: Denies acute: headache, photophobia Eyes: Denies acute: Double vision, vision loss, eye pain, eye discharge. EARS: Denies acute: tinnitus, hearing loss, ear discharge, ear pain, THROAT: Denies acute: sore throat, swelling, difficulty swallowing , pain with swallowing, change in voice. NECK: Denies acute: neck pain, neck swelling, stiff neck. HEART: Denies acute : chest pain, palpitations, LUNGS: Denies acute: SOB, wheezing, cough, hemoptysis ABDOMEN: Denies acute: diarrhea, melena , hematemesis, hematochezia SKIN: Denies acute: rash, redness, lesions, itchiness. EXTREMITIES: Denies acute: calf pain, numbness, tingling, weakness, denies pain in extremity. Denies acute: Low back pain. Neuro: Denies acute: focal neurological deficit, motor or sensory focal neurological deficit, tremors, seizure like activity, confusion, dizziness, change in mental status, loss of bowel or bladder function, cauda equina like symptoms. : Denies acute: dysuria, hematuria, flank pain, increase in urinary frequency. PSYCH: Denies acute: hallucination, suicidal ideation, homicidal ideation. FEMALE: Denies acute: abnormal vaginal bleeding, foul odor, unusual discharge. PHYSICAL EXAM: General: Mod acute distress, awake and alert. Head: normocephalic, atraumatic. Neck: supple, trachea is midline, no swelling. Throat: Normal phonation. Eyes:, no erythema, no purulent discharge, no proptosis, no icterus. Heart: regular rate, regular rhythm, no significant murmur appreciated. Lungs: no apparent respiratory distress, Able to speak in full sentences. No wheezing, no rhonchi, no crackles. No stridors Clear to auscultation bilaterally. Abdomen: epig tender to palpation, non distended, soft, no guarding, no rebound, + bowel sounds. Neuro: Awake, Alert, oriented to name, self, situation, follows commands GCS=15. Speech is normal. Skin: no petechia, no purpura, no cyanosis, non-pale, not jaundice. Lower extremities: --no - Pitting edema no deformity, no focal swelling, no calf TTP. Makes eye contact. moves all four extremities. Face: no apparent facial droop. Ambulating in the ED independently. Chief Complaint: Nausea/Vomiting Time Seen by MD: 13:58 Primary Care Provider: SARAH KELLEY Reviewed Notes: Nurses Notes, Allergies Allergies: Coded Allergies: Latex (Verified Allergy, Unknown, 12/20/13) Home Meds Active Scripts Ondansetron Odt 4MG Tab (ZOFRAN PO) 4 Mg Tb, 4 MG PO Q8HPRN PRN for 3 Days, #9 TAB ODT TAB-DISSOLVE IN MOUTH, THEN SWALLOW Prov:ALESSIO GARG DO 04/17/24 Montelukast Sodium (Singulair) 10 Mg Tab, 10 MG PO DAILY, #30 TAB Prov:MIRACLE CORONA 12/16/23 Ibuprofen Micronized (Ibuprofen) 800 Mg Tab, 800 MG PO TID PRN, #60 TAB Prov:MIRACLE CORONA 12/16/23 Promethazine-Dm (Promethazine Dm 6.25-15 mg/5Ml) 1 [place], 5 ML PO TID PRN, #240 ML Prov:MIRACLE CORONA 12/16/23 Meclizine HCl (Meclizine 25) 25 Mg Tab, 25 MG PO DAILY for 5 Days, #5 TAB Prov:BARRON DOMINGO MD 11/10/23 Reported Medications Vit W/ Ferrous Fumara ( One Daily) Daily Tab, 1 TAB PO DAILY, #30 TAB 11 Refills 05/20/14 Mv & Min W/Fe Fumarat ( Multivitamin + D) + Dha Mis 06/19/11 Information Source: Patient Mode of Arrival: Ambulatory Past Medical History PAST MEDICAL HISTORY: Asthma, PUD Past Medical History (Other): varicose veins Surgical History: Cholecystectomy, 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 Was a procedure done?: No GI differential Dx Differential Diagnosis: Gastroenteritis, Dehydration, Food Poisoning, Viral, Other (DDX include Diverticulitis, colitis, gastroenteritis, acute abdomen, SBO, enteritis, constipation, volvulus, appendicitis, Gallbladder disease, choledocolithiasis, ascending cholangitis, pancreatitis, intraAbdominal mass/neoplasm, hepatitis, UTI, pylonephritis, kidney stone, aneurysm, dissection, Inflammatory bowel disease, gastroparesis, ischemic bowel, ovarian torsion, ovarian cyst/mass, tubo-ovarian abscess, , ectopic , PID, STD.) X-Ray, Labs, Meds, VS Vital Signs Date Time Temp Pulse Resp B/P (MAP) Pulse Ox O2 Delivery O2 Flow Rate FiO2 04/17/24 15:40 98.1 78 17 141/78 (99) 98.1 04/17/24 14:10 Room Air* 0 21 04/17/24 14:07 98.1 91 18 126/95 (105) 100 98.1 04/17/24 09:30 98.7 99 19 123/73 (90) 99 Lab Test 04/17/24 11:08 04/17/24 10:56 04/17/24 10:39 Range/Units Urine Opiates Screen Neg NEGATIVE Urine Fentanyl Screen Neg NEGATIVE Urine Barbiturates Screen Neg NEGATIVE Urine Phencyclidine Screen Neg NEGATIVE Urine Amphetamines Screen Pos NEGATIVE Urine Benzodiazepines Screen Neg NEGATIVE Urine Cocaine Screen Neg NEGATIVE Urine Cannabinoids Screen Neg NEGATIVE White Blood Count 7.5 4.4-10.8 10^3/uL Red Blood Count 4.61 4.0-5.20 10^6/uL Hemoglobin 13.0 12.2-16.2 g/dL Hematocrit 39.4 36.0-46.0 % Mean Corpuscular Volume 85.5 80.0-100.0 fL Mean Corpuscular Hemoglobin 28.2 28.0-32.0 pg Mean Corpuscular Hemoglobin Concent 33.0 32.0-36.0 g/dL Red Cell Distribution Width 13.5 11.8-14.3 % Platelet Count 279 140-450 10^3/uL Mean Platelet Volume 7.6 6.9-10.8 fL Neutrophils (%) (Auto) 58.9 37.0-80.0 % Lymphocytes (%) (Auto) 34.0 10.0-50.0 % Monocytes (%) (Auto) 5.3 0.0-12.0 % Eosinophils (%) (Auto) 1.3 0.0-7.0 % Basophils (%) (Auto) 0.5 0.0-2.0 % Neutrophils # (Auto) 4.4 1.6-8.6 10 ^3/uL Lymphocytes # (Auto) 2.5 0.4-5.4 10 ^3/uL Monocytes # (Auto) 0.4 0-1.3 10 ^3/uL Eosinophils # (Auto) 0.1 0-0.8 10 ^3/uL Basophils # (Auto) 0 0-0.2 10 ^3/uL Nucleated Red Blood Cells 0.1 % Sodium Level 142 136-145 mmol/L Potassium Level 4.5 3.5-5.1 mmol/L Chloride Level 107 98-107 mmol/L Carbon Dioxide Level 29 20-31 mmol/L Anion Gap 6 5-15 Blood Urea Nitrogen 11 9-23 mg/dL Creatinine 0.75 0.550-1.02 mg/dL Glomerular Filtration Rate Calc 106 >90 mL/min BUN/Creatinine Ratio 14.7 10.0-20.0 Serum Glucose 101 74-106 mg/dL Lactic Acid Level 1.3 0.4-2.0 mmol/L Calcium Level 9.7 8.7-10.4 mg/dL Total Bilirubin 0.2 0.2-1.0 mg/dL Aspartate Amino Transferase (AST) 9 L 13-40 U/L Alanine Aminotransferase (ALT) 20 7-40 U/L Alkaline Phosphatase 105 46-116 U/L Troponin I High Sensitivity < 3 L </=34 ng/L Total Protein 7.2 5.7-8.2 g/dL Albumin 4.5 3.2-4.8 g/dL Lipase 52 12-53 U/L Beta HCG, Quantitative 0.2 L 1.5-4.2 mIU/mL Plasma/Serum Blood Alcohol < 3.0 <10 mg/dL Urine Color Light-yellow Yellow Urine Clarity Clear Clear Urine pH 5.5 5.0-9.0 Urine Specific [place] 1.019 1.001-1.035 Urine Protein Negative Negative Urine Ketones Negative Negative Urine Blood Negative Negative /uL Urine Nitrite Negative Negative Urine Bilirubin Negative Negative Urine Urobilinogen Normal Negative mg/dL Urine Leukocyte Esterase Negative Negative /uL Urine RBC 1 0 - 4 /hpf Urine WBC 1 0 - 5 /hpf Urine Squamous Epithelial Cells Few <5 /hpf Urine Bacteria None seen None Seen /hpf Urine Mucus Few None Seen Urine Glucose Normal Normal mg/dL Current Medications Medications (Trade) Dose Ordered Sig/Evens Route Start Time Stop Time Status Last Admin Ondansetron HCl (Zofran Po) 8 mg ONCE ONCE PO 04/17/24 14:15 04/17/24 14:16 DC 04/17/24 14:07 Sodium Chloride 1,000 ml @ 1,000 mls/hr Q1H ONCE IV 04/17/24 14:15 04/17/24 15:14 DC 04/17/24 14:42 Pantoprazole Sodium (Protonix) 40 mg ONCE ONCE IV 04/17/24 14:15 04/17/24 14:16 DC 04/17/24 15:17 Lidocaine HCl (Xylocaine 2% Viscous) 10 ml ONCE ONCE PO 04/17/24 14:15 04/17/24 14:16 DC 04/17/24 14:48 Sucralfate (Carafate Tab) 1 gm ONCE ONCE PO 04/17/24 14:15 04/17/24 14:16 DC 04/17/24 14:47 [place] [address] Ph: [phone] DIAGNOSTIC IMAGING Diagnostic Imaging Report : [id number] Signed PATIENT: JENNIFER LUGO ACCT: [id number] UNIT: [id number] : 1985 LOC: ER ROOM / BED: / AGE / SEX: 38 / F ADM STATUS: REG ER SERVICE 1039 ORDERING PHYSICIAN: ALESSIO GARG DO PROCEDURE(s): ABPL - CT AB PEL WO CON-NO ORAL OR IV REASON: ABD PAIN N/V ORDER NUMBER(s): [id number], ACCESSION NUMBER(s): [id number] CT ABDOMEN AND PELVIS WITHOUT CONTRAST CLINICAL HISTORY: ABD PAIN N/V TECHNIQUE: Multiple contiguous axial images of the abdomen and pelvis without intravenous contrast. The images were reformatted degenerate coronal and sagittal reconstructions. All CT scans at this medical facility are performed using dose modulation techniques as appropriate to a performed exam including the following:Automated exposure control was utilized; adjustment of the MA and/or KV according to patient size; and use of iterative reconstruction technique. Radiation Dose Information: CT Dose: CTDI volume is 16.63 mGy. Dose-length product is 829.19 mGy*cm Comparison: None FINDINGS: Evaluation of the abdomen and pelvis is limited without intravenous contrast. Gallbladder is surgically absent. The liver, pancreas, kidneys, adrenal glands, and spleen appear within normal limits. There is no gross evidence of abdominal lymphadenopathy. There is no free fluid or free air. The stomach grossly appears unremarkable. The small and large bowel loops demonstrate normal caliber. The a normal-appearing appendix is seen in the right lower quadrant abdomen with no associated inflammatory changes. The abdominal aorta and IVC appear within normal limits. The bladder appears unremarkable for the degree of distention. Uterus appears within normal limits. There are surgical clips in the right and left pelvis.. There is no gross evidence of a pelvic mass. There is no free fluid collection. Lung bases are clear. There is no acute osseous abnormality. IMPRESSION: 1. There is no acute process in the abdomen and pelvis. HS:Y ATED BY: HAI BOND MD DICTATED DATE/TIME: 04/17/24 1234 SIGNED BY: HAI BOND MD SIGNED DATE/TIME: 04/17/244 CC: Time of 1ST Reevaluation: 14:30 Reevaluation 1ST: Unchanged Time of 2ND Reevaluation: 00:00 Reevaluation 2ND: Improved Patient Education/Counseling: Diagnosis, Treatment Family Education/Counseling: No Family Present Comments Patient presented with the above HPI.----abdominal pain--workup was initiated. patient was found with the above mentioned diagnosis. Patient was given: Fluids, Zofran, Carafate, lidocaine viscous, Protonix. Patient ED course and VS have been stabilized. Patient has been reassessed in the ED and remained in a stable condition. Pertinent incidental findings were discussed with the patient and/or family. Patient/family voices understanding and is agreeable with plan. Patient has been observed in the ED adequate length of time to insure improvement/stability. patient was discharged home in a stable condition. All the reports of any imaging studies that were ordered by myself were reviewed by myself. Departure 1 Departure Time of Disposition: 14:46 Impression: Primary Impression: Epigastric pain Additional Impressions: Nausea and vomiting Methamphetamine abuse Chronic abdominal pain Disposition: 01 HOME / SELF CARE / HOMELESS Condition: Stable Additional Instructions: Additional discharge instructions: You MUST follow-up with your primary care/family doctor in 1 to 2 days. If you are unable to see your primary care/family doctor, please return to our emergency room for re-assessment and re-evaluation in 1 to 2 days. Return to the emergency room here in our facility or to the nearest ER [facility] if your symptoms change or worsen. CONSULTATIONS: you MUST Follow-up for consultation as soon as possible with: -gastroenterology in 1-2 days. Please call for appointment You MUST call the consultants office yourself to make an appointment. You may need to arrange that through your insurance and/or your primary/family doctor. If you are unable to see the supply chain consultant in 1 to 2 days, you must return to our emergency room (or any other ER of your choice) for re-assessment and re- evaluation. Adequate fluid hydration. Avoid fatty greasy spicy food. Avoid caffeinated products. Avoid NSAIDs. Below is a copy of your radiological report for follow up: [place] [address] Ph: [phone] DIAGNOSTIC IMAGING Diagnostic Imaging Report : [id number] Signed PATIENT: JENNIFER LUGO ACCT: [id number] UNIT: [id number] : 1985 LOC: ER ROOM / BED: / AGE / SEX: 38 / F ADM STATUS: REG ER SERVICE 1039 ORDERING PHYSICIAN: ALESSIO GARG DO PROCEDURE(s): ABPL - CT AB PEL WO CON-NO ORAL OR IV REASON: ABD PAIN N/V ORDER NUMBER(s): [id number], ACCESSION NUMBER(s): [id number] CT ABDOMEN AND PELVIS WITHOUT CONTRAST CLINICAL HISTORY: ABD PAIN N/V TECHNIQUE: Multiple contiguous axial images of the abdomen and pelvis without intravenous contrast. The images were reformatted degenerate coronal and sagittal reconstructions. All CT scans at this medical facility are performed using dose modulation techniques as appropriate to a performed exam including the following:Automated exposure control was utilized; adjustment of the MA and/or KV according to patient size; and use of iterative reconstruction technique. Radiation Dose Information: CT Dose: CTDI volume is 16.63 mGy. Dose-length product is 829.19 mGy*cm Comparison: None FINDINGS: Evaluation of the abdomen and pelvis is limited without intravenous contrast. Gallbladder is surgically absent. The liver, pancreas, kidneys, adrenal glands, and spleen appear within normal limits. There is no gross evidence of abdominal lymphadenopathy. There is no free fluid or free air. The stomach grossly appears unremarkable. The small and large bowel loops demonstrate normal caliber. The a normal-appearing appendix is seen in the right lower quadrant abdomen with no associated inflammatory changes. The abdominal aorta and IVC appear within normal limits. The bladder appears unremarkable for the degree of distention. Uterus appears within normal limits. There are surgical clips in the right and left pelvis.. There is no gross evidence of a pelvic mass. There is no free fluid collection. Lung bases are clear. There is no acute osseous abnormality. IMPRESSION: 1. There is no acute process in the abdomen and pelvis. HS:Y ATED BY: HAI BOND MD DICTATED DATE/TIME: 04/17/24 1234 SIGNED BY: HAI BOND MD SIGNED DATE/TIME: 04/17/24 1234 CC: e-Prescriptions Ondansetron Odt 4MG Tab (ZOFRAN PO) 4 Mg Tb 4 MG PO Q8HPRN PRN for 3 Days, #9 TAB ODT TAB-DISSOLVE IN MOUTH, THEN SWALLOW Prov: ALESSIO GARG DO 04/17/24 Discharged With: Self Critical Care Note Critical Care Time?: No I personally scribed for ALESSIO GARG DO ([email or web address]) on 04/17/24 at 14:12. Electronically submitted by Elise Cruz ([facility]). I personally scribed for ALESSIO GRAG DO ([email or web address]) on 04/17/24 at 14:48. Electronically submitted by Elise Cruz ([facility]). ALESSIO GARG DO Apr 17, 2024 14:12
[2024-04-17] MEDS: SODIUM CHLORIDE 0.9% 1,000 ML IV ONE (14:42)
[2024-04-17] MEDS ORDERED: ZOFR4T PO (14:47)
[2024-04-17] MEDS: SUCRALFATE 1 GM TAB PO ONE (14:47)
[2024-04-17] MEDS: LIDOCAINE VISCOUS 2% 15ML UD PO ONE (14:48)
[2024-04-17] MEDS: PANTOPRAZOLE 40 MG/10 ML VIAL INJ IV ONE (15:17)
[2024-04-17 15:40] VITALS: BP 141/78; PULSE 78; RESP 17; TEMP 98.1
== END 2024-04-17 15:41 | disposition home or self-care (01) ==
LOC: ER 09:17
DX: R10.13 Epigastric pain (principal); R10.2 Pelvic and perineal pain; G89.29 Other chronic pain; J45.909 Unspecified asthma, uncomplicated; F15.10 Other stimulant abuse, uncomplicated; F17.210 Nicotine dependence, cigarettes, uncomplicated; F20.9 Schizophrenia, unspecified; Z79.899 Other long term (current) drug therapy; Z87.11 Personal history of peptic ulcer disease; Z90.49 Acquired absence of other specified parts of digestive tract
CPT/HCPCS: 36415; 74176; 80053; 80307; 80320; 81001; 83605; 83690; 84484; 84702; 85025; 96361; 96374; 99285; J2470; J7030; Q0162